=== PATIENT | female | born 1995 | race American Indian/Alaskan Native ===

== ENCOUNTER 2018-06-05 18:08 | Emergency (ER) | payer MEDICAID ==
[2018-06-05 18:36] VITALS: TEMP 98.1; O2SAT 99; BMI 25.7
--- NOTE | 2018-06-05 18:41 | C.PDOC ---
History Of Present Illness Patient is a 22 y/o female who presents to the ED for evaluation, stating that she has not had a normal bowel movement for the past 2 weeks. She has been experiencing left lower quadrant pain, nausea and vomiting for the past 2 days and has not been able to tolerate PO intake. Her last menstrual period was in March and thinks she may be , but has not taken care. Patient denies fever, vaginal bleeding or discharge. Time Seen by Provider: 06/05/18 18:29 Chief Complaint (Nursing): Abdominal Pain History/Exam Limitations: no limitations Onset/Duration Of Symptoms: Days (2), Other (2 weeks) Current Symptoms Are (Timing): Still Present Location Of Pain/Discomfort: LLQ Radiation Of Pain To:: None Quality Of Discomfort: "Pain" Associated Symptoms: Nausea, Vomiting, Constipation, Other (LLQ pain and no PO intake). denies: Fever, Chills Last Bowel Movement: Other (2 weeks) Recent travel outside of the [place]: No Additional History Per: Patient Abnormal Vaginal Bleeding: No Last Menstral Period: March Past Medical History Reviewed: Historical Data, Nursing Documentation, Vital Signs Vital Signs: Last Vital Signs Temp 98.1 F 06/05/18 18:17 Pulse 88 06/05/18 18:17 Resp 18 06/05/18 18:17 BP 115/70 06/05/18 18:17 Pulse Ox 99 06/05/18 18:17 - Medical History PMH: No Chronic Diseases Surgical History: - [facility] Procedures INJECT/INFUSE ELECTROLYT (01/14/15) INJECT/INFUSE NEC (01/14/15) Family History: States: Unknown Family Hx - Social History Hx Alcohol Use: No Hx Substance Use: No - Immunization History Hx Tetanus Toxoid Vaccination: No Hx Influenza Vaccination: No Hx Pneumococcal Vaccination: No Review Of Systems Constitutional: Negative for: Fever, Chills Gastrointestinal: Positive for: Nausea, Vomiting, Abdominal Pain (left lower quadrant ), Constipation Genitourinary: Negative for: Vaginal Discharge, Vaginal Bleeding Physical Exam - Physical Exam Appears: Non-toxic, No Acute Distress, Other (nauseated) Skin: Normal Color, Warm, Dry Head: Atraumatic, Normacephalic Eye(s): bilateral: Normal Inspection Oral Mucosa: Moist Neck: Supple Chest: Symmetrical, No Deformity, No Tenderness Cardiovascular: Rhythm Regular, No Murmur Respiratory: Normal Breath Sounds, No Rales, No Rhonchi, No Wheezing Gastrointestinal/Abdominal: Bowel Sounds (normal ), Soft, Tenderness (mild, to left lower quadrant ), No Distention, No Guarding, No Rebound Extremity: Normal ROM, Capillary Refill (less than 2 seconds ) Neurological/Psych: Oriented x3, Normal Speech, Normal Cognition ED Course And Treatment - Laboratory Results Result Diagrams: 06/05/18 18:50 06/05/18 18:50 Lab Interpretation: No Acute Changes ([facility] [place] [facility] [place] [id number][place] O2 Sat by Pulse Oximetry: 99 (on RA ) Pulse Ox Interpretation: Normal - CT Scan/US Pelvic US Other Rad Studies (CT/US): Read By Radiologist, Radiology Report Reviewed CT/US Interpretation: History. Abdominal pain. Comparison. None available. Findings. Uterus. Single live intrauterine gestation. CRL equivalent to 8 wks/4 days gestatioin. Gestational sac diameter equivalent to 9 wks/5 days gestation. Yolk sac and pole are identified. Heart rate: 152 bpm. Amadna-gestational hemorrhage: None. Uterus measures 10.1 x 7.91 x 7.46 cm. No mass. Cervix. Long and closed measuring 3.07 cm. No cervical abnormality seen. Right Ovary. Measures 3.1 x 1.97 x 2.62 cm. No mass. Normal flow. Left Ovary. Measures 3.25 x 2.09 x 3.32 cm. No mass. Normal flow. Corpus luteal cyst measures 2.1 x 1.29 x 1.6 cm. Free Fluid. None. Other Findings. None. Impression. 1. Single live intrauterine gestation. 2. Left ovarian corpus luteal cyst. . Electronically signed on Jun 05, 2018 9:06:08 PM EST by: Lalo Jacobs M.D., LINDA Certified By [facility] & [facility]. Fellowship Trained MRI and CT Specialist. Progress Note: Bloodwork, urinalysis, Pelvic Ultrasound ordered and reviewed. Patient given Fleet Enema [place], Zofran IVP, and IV Fluids. Reevaluation Time: 21:12 Reassessment Condition: Improved (Patient states she had a small bowel movement after the enema and feels better.) Disposition Counseled Patient/Family Regarding: Studies Performed, Diagnosis, Need For Followup, Rx Given - Disposition Referrals: [facility] [Outside] Disposition: HOME/ ROUTINE Disposition Time: 21:12 Condition: IMPROVED Additional Instructions: Encourage plenty of fluids. Take Metamucil or prune juice for constipation. Take Tylenol if needed for pain. Prescriptions: Nitrofurantoin Macrocrystals [Macrobid] 1 cap PO BID #14 cap Instructions: Urinary Tract Infections in Adults, - The Second Month, High Fiber Diet, Constipation, Adult (DC) Forms: [facility] (Portuguese) - Clinical Impression Clinical Impression: Constipation, UTI (urinary tract infection) in in second trimester, Corpus luteum cyst of left ovary
[2018-06-05 18:53] LABS: BASO % 0.3 % (0.0-2.0); EOS # 0.2 K/uL (0.0-0.7); EOS % 2.8 % (0.0-4.0); HEMOGLOBIN 12.3 g/dL (11.0-16.0); LYMPH # 1.6 K/uL (1.0-4.3); LYMPH % 21.7 % (20.0-40.0); MEAN CELL VOLUME 85.7 fL (81.0-99.0); MEAN CORPUSCULAR HEMOGLOBIN 27.9 pg (27.0-31.0); MEAN CORPUSCULAR HGB CONC 32.5 g/dL (33.0-37.0); MEAN PLATELET VOLUME 7.6 fL (7.2-11.7); MONO # 0.5 K/uL (0.0-0.8); MONO % 6.6 % (0.0-10.0); NEUT % 68.6 % (50.0-75.0); RBC 4.41 Mil/uL (3.80-5.20); RED CELL DISTRIBUTION WIDTH 13.9 % (11.5-14.5); WHITE BLOOD COUNT 7.3 K/uL (4.8-10.8)
[2018-06-05] MEDS: Sodium Chloride 0.9% 1,000 ML IV ONE (19:02)
[2018-06-05 19:03] LABS: SQUAMOUS EPITHIAL 9 /hpf (0-5); URINE BACTERIA MANY (<OCC); URINE BILIRUBIN NEGATIVE (NEGATIVE); URINE BLOOD NEGATIVE (NEGATIVE); URINE CLARITY Hazy (Clear); URINE COLOR Yellow (YELLOW); URINE GLUCOSE (UA) NORMAL (Normal); URINE HYALINE CAST 0-2 /lpf (0-2); URINE LEUKOCYTE ESTERASE NEG Leu/uL (Negative); URINE PROTEIN 1+ mg/dL (NEGATIVE)
[2018-06-05 19:07] LABS: ALB/GLOB RATIO 1.7 (1.0-2.1); ALBUMIN 4.6 g/dL (3.5-5.0); ALT/SGPT 38 U/L (9-52); AST/SGOT 27 U/L (14-36); BLOOD UREA NITROGEN 11 mg/dL (7-17); CALCIUM 9.1 mg/dl (8.6-10.4); GFR NON-AFRICAN AMERICAN > 60
[2018-06-05 19:26] VITALS: BP 126/54; PULSE 85; RESP 16
--- NOTE | 2018-06-06 11:17 | US ---
Date of service: 06/05/2018 Indication: abd pain Comparison: 1st trimester ultrasound performed 01/15/15 Technique: Transabdominal pelvic ultrasound. Findings: Uterus measures approximately 10.1 x 7.9 x 7.5 cm. Anteverted. Cervix length measures approximately 3.1 cm. There is a single intrauterine fetus present. 4 mm yolk sac. The gestational sac measures 4.3 cm and is compatible with a gestational age of 9 weeks 5 days. The crown-rump length measures 2.0 cm and is compatible with a gestational age of 8 weeks 4 days. 1.3 x 0.5 x 2.2 cm and 1.4 x 0.9 x 2.0 cm probable subchorionic hemorrhages. There is heart motion which measured 152.3 BPM. The right ovary measures 3.1 x 2.0 x 2.6 cm. The left ovary measures 3.3 x 2.1 x 3.3 cm. Probable left corpus luteal cyst measuring 2.1 x 1.3 X 1.6 cm. Blood flow was demonstrated to both ovaries. Impression: Live single intrauterine with estimated gestational age 9 weeks 5 days by gestational sac calculation and 8 weeks 4 days by crown-rump length calculation. heart rate 152.3 bpm. Advise an anomaly screen at 16-18 weeks gestational age. Two regions of probable subchorionic hemorrhage as above. Probable left corpus luteal cyst measuring 2.1 x 1.3 X 1.6 cm. Preliminary impression was provided by [employer]
== END 2018-06-05 21:32 | disposition home or self-care (01) ==
LOC: C.ER 18:08
DX: O23.41 Unspecified infection of urinary tract in pregnancy, first trimester (principal); O34.81 Maternal care for other abnormalities of pelvic organs, first trimester; N83.12 Corpus luteum cyst of left ovary; O26.891 Other specified pregnancy related conditions, first trimester; K59.00 Constipation, unspecified; Z3A.09 9 weeks gestation of pregnancy
CPT/HCPCS: 76801; 80053; 81001; 84702; 85025; 87086; 87181; 96361; 96374; 99285; J2405; J7030